=== PATIENT | female | born 1990 | race Caucasian/White ===

== ENCOUNTER 2016-08-26 10:34 | Emergency (ER) | payer BC, OTHER ==
[2016-08-26] MEDS ORDERED: NS 0.9% 1000 ML* 1,000 ML IV ONE (11:16)
[2016-08-26 12:08] LABS: Hematocrit 42 % (35-47); Mean Corpuscular HGB Conc 34 g/dl (31-36); Mean Corpuscular Hemoglobin 29 pg (27-31); Mean Corpuscular Volume 86 fL (80-97); Mean Platelet Volume 7 um3 (7.4-10.4); Red Blood Count 4.87 10^6/ul (4.0-5.4); Red Cell Distribution Width 15 % (10.5-15); White Blood Count 8.6 10^3/ul (3.5-10.8)
[2016-08-26 12:25] LABS: ALT 28 U/L (7-52); AST 20 U/L (13-39); Albumin 3.9 g/dL (3.2-5.2); Alkaline Phosphatase 74 U/L (34-104); Anion Gap 11 mmol/L (2-11); BUN/Creatinine Ratio 15.2 (8-20); Blood Urea Nitrogen 10 mg/dL (6-24); C Reactive Protein 18.51 mg/L (< 5.00); CO2 Carbon Dioxide 24 mmol/L (22-32); Calcium 9.4 mg/dL (8.6-10.3); Chloride 94 mmol/L (101-111); EGFR African American 141.5 (>60); Globulin 4.1 g/dL (2-4); Glucose 417 mg/dL (70-100); Lipase 27 U/L (11.0-82.0); Potassium 3.5 mmol/L (3.5-5.0); Sodium 129 mmol/L (133-145)
[2016-08-26 12:36] LABS: Urine Bacteria Absent (Absent); Urine Bilirubin Negative (Negative); Urine Glucose 3+(>=500 mg/dL) (Negative); Urine Nitrite Negative (Negative)
[2016-08-26 12:48] LABS: TSH (Thyroid Stimulating Horm) 4.57 mcIU/mL (0.34-5.60)
[2016-08-26] MEDS ORDERED: cefTRIAXone(*) 1 GM in NS 0.9% 50 ML* 50 ML IVPB ONE (13:04)
[2016-08-26] MEDS ORDERED: DOXYcycline CAP(*) 100 MG PO ONE (13:04)
[2016-08-26] MEDS ORDERED: NS 0.9% 1000 ML* 2,000 ML IV ONE (13:04)
[2016-08-26] MEDS ORDERED: Iodixanol* (CONTRAST) 320 MG/ML 100 ML SDV IV ONE (14:34)
--- NOTE | 2016-08-26 15:05 | RAD ---
INDICATION: Lower abdominal pain left greater than right. COMPARISON: Comparison is made with a prior CT of the abdomen and pelvis from December 16, 2012. TECHNIQUE: A CT scan of the abdomen and pelvis was performed with intravenous and oral contrast following intravenous injection of 122 ml of is a PICC 320 nonionic contrast. Contiguous axial sections were obtained from the lung bases through the symphysis pubis. Images were reconstructed in the coronal and sagittal planes. FINDINGS: The lung bases are clear. No pleural effusion is present. The liver is moderately enlarged and decreased in attenuation consistent with fatty infiltration without significant focal abnormality. This appears similar to the prior study. No calcified gallstones are seen. The spleen appears to be within normal limits. The pancreas appears to be within normal limits. The kidneys and adrenal glands are normal in size. No hydronephrosis is seen. No significant focal renal abnormality is seen. The aorta is normal in caliber and demonstrates homogeneous contrast opacification. No significant enlarged retroperitoneal lymph nodes are seen. The stomach, small and large bowel appear nondistended. The patient is status post appendectomy. There is mild descending and sigmoid diverticulosis without evidence for diverticulitis. The uterus is retroverted and normal in size. No free intraperitoneal air or fluid is seen. No significant focal osseous abnormality is seen. IMPRESSION: 1. NO EVIDENCE FOR ACUTE FINDING OR CAUSE FOR THE PATIENT'S ABDOMINAL PAIN IS SEEN. 2. HEPATOMEGALY AND HEPATIC STEATOSIS.
--- NOTE | 2016-08-26 15:44 | ED ---
I, Adriel,Max, scribed for Wicho García MD on 08/26/16 at 1230 . GI/ HPI - HPI Summary HPI Summary: This 26 y/o female presents to ED for "black" vaginal discharge since 3 days ago. Positive suprapubic discomfort. Pt reports that her menstrual cycle is irregular with LMP in March 2016. Two home tests TEST CASE DEVELOPER were negative. Pt denies any dysuria, but complaints of suprapubic abd pain, chronic constipation, and recurrent fever/chills secondary to her "thyroid problem". PMHx does include borderline diet- and exercise- controlled DM and appendectomy. 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 - History of Current Complaint Chief Complaint: EDVaginalBleeding Time Seen by Provider: 08/26/16 11:09 Stated Complaint: ABD PAIN Hx Obtained From: Patient, Medical Records Onset/Duration: Started Days Ago - 3 days ago, Still Present Timing: Constant Severity: Mild Current Severity: Mild Vaginal Bleeding Description: Dark Red - "black" Pain Intensity: 6 Location of Pain: Suprapubic Pain Characteristics: Dull Associated Signs and Symptoms: Positive: Fever - subjective, chronic secondary to "thyroid problem", Chills - subjective, chronic secondary to "thyroid problem ". Negative: Dysuria Aggravating Factor(s): Nothing Alleviating Factor(s): Nothing - Allergy/Home Medications Allergies/Adverse Reactions: Allergies Allergy/AdvReac Type Severity Reaction Status Date / Time PEACHES Allergy Rash And Uncoded 08/26/16 10:44 Itching PMH/Surg Hx/FS Hx/Imm Hx Endocrine/Hematology History: Reports: Hx Thyroid Disease Comment Only: Hx Diabetes - borderline controlled by diet and exercise Respiratory History: Reports: Hx Asthma - Surgical History Surgery Procedure, Year, and Place: Appendectomy, Tonsils and adnoids removed, herniated belly button repair as an infant Infectious Disease History: No Infectious Disease History: Denies: Traveled Outside the [place] in Last 30 Days - Family History Known Family History: Positive: Unknown - Pt is adopted - Social History Substance Use Type: Reports: None Review of Systems Positive: Fever - subjective, chronic, Chills - subjective, chronic Positive: Abdominal Pain - suprapubic pain, Other - chronic constipation Negative: Anxious, Depressed All Other Systems Reviewed And Are Negative: Yes Physical Exam Triage Information Reviewed: Yes Vital Signs On Initial Exam: Initial Vitals Temp Pulse Resp BP Pulse Ox 97.5 F 109 15 153/104 100 08/26/16 10:36 08/26/16 10:36 08/26/16 10:36 08/26/16 10:36 08/26/16 10:36 Vital Signs Reviewed: Yes Appearance: Positive: Well-Appearing, No Pain Distress, Obese Skin: Positive: Warm, Dry Eyes: Positive: EOMI, ROMULO Respiratory/Lung Sounds: Positive: Clear to Auscultation, Breath Sounds Present Cardiovascular: Positive: RRR, Pulses are Symmetrical in both Upper and Lower Extremities Abdomen Description: Positive: Other: - suprapubic tenderness. Negative: CVA Tenderness (R), CVA Tenderness (L) Bowel Sounds: Positive: Present Musculoskeletal: Positive: Strength/ROM Intact Neurological: Positive: Sensory/Motor Intact, Alert, Oriented to Person Place, Time Psychiatric: Positive: Affect/Mood Appropriate AVPU Assessment: Alert Diagnostics - Vital Signs Vital Signs Temp Pulse Resp BP Pulse Ox 08/26/16 10:36 97.5 F 109 15 153/104 100 - Laboratory Lab Results: Lab Results 08/26/16 08/26/16 08/26/16 Range/Units 11:55 11:55 11:55 WBC 8.6 (3.5-10.8) 10^3/ul RBC 4.87 (4.0-5.4) 10^6/ul Hgb 14.0 (12.0-16.0) g/dl Hct 42 (35-47) % MCV 86 (80-97) fL MCH 29 (27-31) pg MCHC 34 (31-36) g/dl RDW 15 (10.5-15) % Plt Count 214 (150-450) 10^3/ul MPV 7 L (7.4-10.4) um3 Neut % (Auto) 52.9 (38-83) % Lymph % (Auto) 40.2 (25-47) % [place] % (Auto) 5.2 (1-9) % Eos % (Auto) 0.9 (0-6) % Baso % (Auto) 0.8 (0-2) % Absolute Neuts (auto) 4.5 (1.5-7.7) 10^3/ul Absolute Lymphs (auto) 3.4 (1.0-4.8) 10^3/ul Absolute Monos (auto) 0.4 (0-0.8) 10^3/ul Absolute Eos (auto) 0.1 (0-0.6) 10^3/ul Absolute Basos (auto) 0.1 (0-0.2) 10^3/ul Absolute Nucleated RBC 0 10^3/ul Nucleated RBC % 0 INR (Anticoag Therapy) 0.94 (0.89-1.11) APTT 29.2 (26.0-36.3) seconds Sodium (133-145) mmol/L Potassium (3.5-5.0) mmol/L Chloride (101-111) mmol/L Carbon Dioxide (22-32) mmol/L Anion Gap (2-11) mmol/L BUN (6-24) mg/dL Creatinine (0.51-0.95) mg/dL Est GFR ( Amer) (>60) Est GFR (Non-Af Amer) (>60) BUN/Creatinine Ratio (8-20) Glucose (70-100) mg/dL Lactic Acid (0.5-2.0) mmol/L Calcium (8.6-10.3) mg/dL Total Bilirubin (0.2-1.0) mg/dL AST (13-39) U/L ALT (7-52) U/L Alkaline Phosphatase (34-104) U/L C-Reactive Protein (< 5.00) mg/L Total Protein (6.4-8.9) g/dL Albumin (3.2-5.2) g/dL Globulin (2-4) g/dL Albumin/Globulin Ratio (1-3) Lipase (11.0-82.0) U/L TSH (0.34-5.60) mcIU/mL Beta HCG, Quant mIU/mL Urine Color Yellow Urine Appearance Clear Urine pH 6.0 (5-9) Ur Specific Emblem 1.029 (1.010-1.030) Urine Protein Negative (Negative) Urine Ketones Negative (Negative) Urine Blood 3+ H (Negative) Urine Nitrate Negative (Negative) Urine Bilirubin Negative (Negative) Urine Urobilinogen Negative (Negative) Ur Leukocyte Esterase Negative (Negative) Urine WBC (Auto) Absent (Absent) Urine RBC (Auto) Trace(0-2/hpf) (Absent) Ur Squamous Epith Cells Present H (Absent) Urine Bacteria Absent (Absent) Urine Glucose 3+(>=500 mg/dl) H (Negative) 08/26/16 08/26/16 Range/Units 11:55 11:55 WBC (3.5-10.8) 10^3/ul RBC (4.0-5.4) 10^6/ul Hgb (12.0-16.0) g/dl Hct (35-47) % MCV (80-97) fL MCH (27-31) pg MCHC (31-36) g/dl RDW (10.5-15) % Plt Count (150-450) 10^3/ul MPV (7.4-10.4) um3 Neut % (Auto) (38-83) % Lymph % (Auto) (25-47) % [place] % (Auto) (1-9) % Eos % (Auto) (0-6) % Baso % (Auto) (0-2) % Absolute Neuts (auto) (1.5-7.7) 10^3/ul Absolute Lymphs (auto) (1.0-4.8) 10^3/ul Absolute Monos (auto) (0-0.8) 10^3/ul Absolute Eos (auto) (0-0.6) 10^3/ul Absolute Basos (auto) (0-0.2) 10^3/ul Absolute Nucleated RBC 10^3/ul Nucleated RBC % INR (Anticoag Therapy) (0.89-1.11) APTT (26.0-36.3) seconds Sodium 129 L (133-145) mmol/L Potassium 3.5 (3.5-5.0) mmol/L Chloride 94 L (101-111) mmol/L Carbon Dioxide 24 (22-32) mmol/L Anion Gap 11 (2-11) mmol/L BUN 10 (6-24) mg/dL Creatinine 0.66 (0.51-0.95) mg/dL Est GFR ( Amer) 141.5 (>60) Est GFR (Non-Af Amer) 110.0 (>60) BUN/Creatinine Ratio 15.2 (8-20) Glucose 417 H (70-100) mg/dL Lactic Acid 3.2 H* (0.5-2.0) mmol/L Calcium 9.4 (8.6-10.3) mg/dL Total Bilirubin 0.40 (0.2-1.0) mg/dL AST 20 (13-39) U/L ALT 28 (7-52) U/L Alkaline Phosphatase 74 (34-104) U/L C-Reactive Protein 18.51 H (< 5.00) mg/L Total Protein 8.0 (6.4-8.9) g/dL Albumin 3.9 (3.2-5.2) g/dL Globulin 4.1 H (2-4) g/dL Albumin/Globulin Ratio 1.0 (1-3) Lipase 27 (11.0-82.0) U/L TSH 4.57 (0.34-5.60) mcIU/mL Beta HCG, Quant < 0.60 mIU/mL Urine Color Urine Appearance Urine pH (5-9) Ur Specific Emblem (1.010-1.030) Urine Protein (Negative) Urine Ketones (Negative) Urine Blood (Negative) Urine Nitrate (Negative) Urine Bilirubin (Negative) Urine Urobilinogen (Negative) Ur Leukocyte Esterase (Negative) Urine WBC (Auto) (Absent) Urine RBC (Auto) (Absent) Ur Squamous Epith Cells (Absent) Urine Bacteria (Absent) Urine Glucose (Negative) Result Diagrams: 08/26/16 11:55 08/26/16 11:55 Lab Statement: Any lab studies that have been ordered have been reviewed, and results considered in the medical decision making process. - CT Ab/P CT Interpretation: No Acute Changes - 1. NO EVIDENCE FOR ACUTE FINDING OR CAUSE FOR THE PATIENT'S ABDOMINAL PAIN IS SEEN. 2. HEPATOMEGALY AND HEPATIC STEATOSIS. CT Interpretation Completed By: Radiologist - Additional Comments Diagnostic Additional Comments: US Pelvis -- See EMR for official reading. Imaging pending at this time. GIGU Course/Dx - Course Assessment/Plan: DISCUSSED RESULTS WITH PATIENT. WILL TREAT FOR PID WHILE PELVIC CX PENDING WITH DOXY 100MG PO BID X 14 DAYS AND WITH METRO GEL FOR POSSIBLE BV. ENCOURAGED F/U WITH PMD TO MANAGE DIABETES. DISCHARGE HOME STABLE. - Diagnoses Provider Diagnoses: Pelvic pain, Diabetes Discharge - Discharge Plan Condition: Stable Disposition: HOME Discharge Disposition Comment: Signed out at shift change. US Pelvis study pending. Prescriptions: DOXYcycline CAP(*) [DOXYcycline 100MG CAP(*)] 100 mg PO BID #27 cap metroNIDAZOLE VAGINAL 0.75%* 1 applic VAGINAL BEDTIME #5 tube Patient Education Materials: Pelvic Pain (ED), Managing Diabetes During Sick Days (ED), Diabetes Mellitus Type 2 in Adults (ED) Referrals: Elma Castro PA [Primary Care Provider] - [facility] [Outside] Additional Instructions: FOLLOW UP WITH YOUR DOCTOR FOR BOTH YOUR PELVIC PAIN AND FOR DIABETES TREATMENT. RETURN TO THE EMERGENCY DEPARTMENT FOR ANY WORSENING OF YOUR CONDITION OR QUESTIONS OR CONCERNS. The documentation as recorded by the Adriel gerber Soohyun accurately reflects the service I personally performed and the decisions made by me, Wicho García MD.
--- NOTE | 2016-08-26 15:47 | RAD ---
Indication: Pelvic pain. COMPARISON: Comparison is made with a prior CT of the abdomen and pelvis of the same date. TECHNIQUE: Multiple real-time transvaginal images of the pelvis were obtained. FINDINGS: The uterus is normal in size, shape and echogenicity. The uterus measured 8.3 x 5.3 x 4.1 cm. The endometrial echo measured 1.0 cm in thickness. The right ovary measured 2.9 x 2.3 x 5.1 cm. The left ovary measured 2.3 x 2.3 x 3.6 cm. There is vascular flow within both ovaries. No free intraperitoneal fluid is seen. IMPRESSION: RETROVERTED UTERUS, OTHERWISE UNREMARKABLE STUDY.
[2016-08-26 15:53] VITALS: BP 112/95
== END 2016-08-26 15:54 | disposition home or self-care (01) ==
LOC: ED 10:34
DX: R10.2 Pelvic and perineal pain (principal); E11.8 Type 2 diabetes mellitus with unspecified complications; R50.9 Fever, unspecified; R68.83 Chills (without fever); R10.9 Unspecified abdominal pain; K59.00 Constipation, unspecified
CPT/HCPCS: 36415; 74177; 76830; 76856; 80053; 81003; 81015; 83605; 83690; 84443; 84702; 85025; 85610; 85730; 86140; 87480; 87491; 87510; 87591; 87661; 99283; A9270-GY; J0696; Q9967

== ENCOUNTER 2018-11-08 14:08 | Emergency (ER) | payer OTHER ==
[2018-11-08 15:04] VITALS: BP 161/96
--- NOTE | 2018-11-08 16:08 | UC ---
Skin Complaint HPI - HPI Summary HPI Summary: Patient had 2 papules on her right abdomen and left abdomen over the past week. She states today they are more red and scabbed but no active drainage. She denies any fever or chills. She denies any history of MRSA - History of Current Complaint Chief Complaint: UCSkin Time Seen by Provider: 11/08/18 16:04 Stated Complaint: SKIN CONCERN Hx Obtained From: Patient Hx Last Menstrual Period: "I DON'T REMEMBER.. I NEVER HAVE REGULAR PERIODS" ?: No Onset/Duration: Gradual Onset Skin Exposure Onset/Duration: Days Ago Timing: Constant Onset Severity: Mild Current Severity: Moderate Pain Intensity: 7 Location: Other - Abdomen Character: Swelling, Redness, Raised, Painful Aggravating Factor(s): Touch Alleviating Factor(s): Nothing - Allergy/Home Medications Allergies/Adverse Reactions: Allergies Allergy/AdvReac Type Severity Reaction Status Date / Time naproxen Allergy Rash Verified 11/08/18 15:01 PMH/Surg Hx/FS Hx/Imm Hx Previously Healthy: Yes - Surgical History Surgical History: Yes Surgery Procedure, Year, and Place: Appendectomy, Tonsils and adnoids removed, herniated belly button repair as an infant - Family History Known Family History: Positive: Unknown - Pt is adopted - Social History Alcohol Use: None Substance Use Type: None Smoking Status (MU): Former Smoker Review of Systems All Other Systems Reviewed And Are Negative: Yes Skin: Positive: Other - 2 scabbed areas one to the right of the navel in one to the left surrounded by approximately 2.0 cm of erythema and tender on palpation no active drainage. Is Patient Immunocompromised?: No Physical Exam Triage Information Reviewed: Yes Appearance: Well-Appearing, No Pain Distress, Well-Nourished Vital Signs: Initial Vital Signs Temp 97.5 F 11/08/18 15:01 Pulse 105 11/08/18 15:01 Resp 18 11/08/18 15:01 BP 161/96 11/08/18 15:01 Pulse Ox 100 11/08/18 15:01 Vital Signs Reviewed: Yes Musculoskeletal Exam: Normal Neurological Exam: Normal Psychological Exam: Normal Skin: Positive: Other - 2 scabbed areas one to the right of the navel in one to the left surrounded by approximately 2.0 cm of erythema and tender on palpation no active drainage. Course/Dx - Course Course Of Treatment: Patient is comfortable here. These are 2 areas of cellulitis which may be developing into an abscess. On an antibiotic and warm moist compresses 4-6 times a day. She is to follow- up with her primary care provider in 3 or 4 days if no improvement and go to the emergency room if she has any worsening symptoms, fever or chills, vomiting or any further concerns. The patient is agreeable to this plan of action. - Diagnoses Provider Diagnosis: Cellulitis of abdominal wall Discharge - Sign-Out/Discharge Documenting (check all that apply): Patient Departure All imaging exams completed and their final reports reviewed: No Studies - Discharge Plan Condition: Fair Disposition: HOME Prescriptions: Cephalexin CAP* [Keflex 500 CAP*] 500 mg PO TID 10 Days #30 cap Patient Education Materials: Cellulitis (DC) Referrals: No Primary Care Phys,NOPCP [Primary Care Provider] - [facility] [Outside] Additional Instructions: Warm moist compresses to the area 4-6 times a day for 20 minutes each time. Definite [facility] at [facility] if the area worsens or starts draining pus. You are to go to the emergency room if you have any fever, chills , vomiting and unable keep the medication down or worsening symptoms. - Billing Disposition and Condition Condition: FAIR Disposition: Home - Attestation Statements Provider Attestation: Per institutional requirements, I have reviewed the chart, however, I was not consulted specifically or made aware of this patient by the midlevel provider. I did not personally evaluate, interact with , or disposition this patient.
== END 2018-11-08 16:12 | disposition home or self-care (01) ==
LOC: UCCORT 14:08
DX: L03.311 Cellulitis of abdominal wall (principal); Z88.8 Allergy status to other drugs, medicaments and biological substances
CPT/HCPCS: 99212; G0463

== ENCOUNTER 2019-02-27 19:31 | Emergency (ER) | payer OTHER ==
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
[2019-02-28 03:37] LABS: ABS Eosinophils 0.1 10^3/ul (0-0.6); ABS Monocytes 0.6 10^3/ul (0-0.8); ABS Neutrophils 6.8 10^3/ul (1.5-7.7); Eosinophil % 0.6 %; Hematocrit 42 % (35-47); Hemoglobin 14.1 g/dL (12.0-16.0); Lymphocyte % 34.6 %; Mean Corpuscular HGB Conc 34 g/dL (31-36); Mean Corpuscular Hemoglobin 30 pg (27-31); Mean Corpuscular Volume 88 fL (80-97); Mean Platelet Volume 7.3 fL (7.4-10.4); Nucleated Red Blood Cells % 0.2; Platelet Count 258 10^3/uL (150-450); Red Blood Count 4.79 10^6 /uL (3.70-4.87); Red Cell Distribution Width 15 % (10-15); White Blood Count 11.4 10^3/uL (3.5-10.8)
[2019-02-28] MEDS ORDERED: Acyclovir* 200 MG CAP PO ONE (03:44)
[2019-02-28] MEDS ORDERED: Azithromycin TAB* 250 MG PO ONE (03:45)
[2019-02-28] MEDS ORDERED: cefTRIAXone VIAL(*) 250 MG VIAL IM ONE (03:45)
[2019-02-28] MEDS ORDERED: DOXYcycline CAP(*) 100 MG PO ONE (03:45)
[2019-02-28 04:01] LABS: Albumin 4.4 g/dL (3.2-5.2); Albumin/Globulin Ratio 1.1 (1-3); BUN/Creatinine Ratio 12.3 (8-20); Calcium 9.1 mg/dL (8.6-10.3); EGFR African American 155.1 (>60); EGFR Non-African American 128.2 (>60); Potassium 3.3 mmol/L (3.5-5.0); Total Bilirubin 0.6 mg/dL (0.2-1.0); Total Protein 8.4 g/dL (6.4-8.9)
[2019-02-28] MEDS ORDERED: Lidocaine 1% MPF ** 5 ML VIAL ONE (04:27)
[2019-02-28] MEDS ORDERED: Acyclovir SUSP(*) ORALSYR 40 MG/ML (200 MG/5 ML) PO ONE (05:00)
[2019-02-28 05:20] VITALS: BP 143/94
== END 2019-02-28 05:19 | disposition home or self-care (01) ==
LOC: ED 19:31
DX: A60.04 Herpesviral vulvovaginitis (principal); K59.00 Constipation, unspecified; R73.03 Prediabetes; Z79.84 Long term (current) use of oral hypoglycemic drugs; I10 Essential (primary) hypertension; Z88.6 Allergy status to analgesic agent; Z91.018 Allergy to other foods; Z87.891 Personal history of nicotine dependence
CPT/HCPCS: 36415; 80053; 83605; 85025; 96372; 99283; A9270-GY; J0696

== ENCOUNTER 2019-04-02 17:56 | Emergency (ER) | payer OTHER ==
[2019-04-02] MEDS ORDERED: Ondansetron INJ* 2 MG/ML VIAL IV ONE (21:41)
[2019-04-02] MEDS ORDERED: NS 0.9% 1000 ML** 1,000 ML IV ONE (21:41)
[2019-04-02 21:44] LABS: ABS Basophils 0.1 10^3/ul (0-0.2); ABS Lymphocytes 3.9 10^3/ul (1.0-4.8); ABS Monocytes 0.4 10^3/ul (0-0.8); ABS Neutrophils 7.2 10^3/ul (1.5-7.7); Eosinophil % 0.3 %; Hematocrit 42 % (35-47); Hemoglobin 14.3 g/dL (12.0-16.0); Lymphocyte % 33.5 %; Mean Corpuscular HGB Conc 34 g/dL (31-36); Mean Corpuscular Hemoglobin 30 pg (27-31); Mean Corpuscular Volume 87 fL (80-97); Mean Platelet Volume 7.1 fL (7.4-10.4); Platelet Count 294 10^3/uL (150-450); Red Blood Count 4.85 10^6 /uL (3.70-4.87); Red Cell Distribution Width 14 % (10-15); White Blood Count 11.6 10^3/uL (3.5-10.8)
--- NOTE | 2019-04-02 21:44 | ED ---
GI/ HPI - HPI Summary HPI Summary: This patient is a 28 year old F presenting to [facility] with a chief complaint of severe vaginal bleeding since one week ago. Patient reports red rash, burning urination, abdominal pain, vaginal pain, diaphoresis, near syncope every time she moves, constipation, vomiting with any intake of food. Patient denies diarrhea. Per triage, the patient rates the pain 6/10 in severity. Pt is not on control. Pt has PMHx of polycystic ovary syndrome, and her last period was months ago. - History of Current Complaint Chief Complaint: EDGeneral Time Seen by Provider: 04/02/19 21:21 Stated Complaint: HEAVY BLEEDING CRAMPS PER PT Hx Obtained From: Patient Hx Last Menstrual Period: "I DON'T REMEMBER.. I NEVER HAVE REGULAR PERIODS" Onset/Duration: Started Days Ago Timing: Constant Severity: Moderate Current Severity: Moderate Vaginal Bleeding Description: Bright Red Pain Intensity: 6 Location of Pain: Diffuse Additional Location for Females: Other - Vaginal pain Associated Signs and Symptoms: Positive: Vomiting, Diaphoresis, Dysuria, Abdominal Pain, Other: - red rash near vagina, vaginal pain, near syncope, constipation,. Negative: Diarrhea Additional Signs & Symptoms: Positive: Vaginal Bleeding, Menses Irregular Aggravating Factor(s): Movement Alleviating Factor(s): Nothing - Allergy/Home Medications Allergies/Adverse Reactions: Allergies Allergy/AdvReac Type Severity Reaction Status Date / Time naproxen Allergy Rash Verified 11/08/18 15:01 peaches Allergy Rash Uncoded 02/27/19 19:41 PMH/Surg Hx/FS Hx/Imm Hx Endocrine/Hematology History: Reports: Hx Diabetes - borderline controlled by diet and exercise, Hx Thyroid Disease Cardiovascular History: Reports: Hx Hypertension Respiratory History: Reports: Hx Asthma History: Denies: Hx Renal Disease - Surgical History Surgery Procedure, Year, and Place: Appendectomy, Tonsils and adnoids removed, herniated belly button repair as an infant Infectious Disease History: No Infectious Disease History: Denies: Traveled Outside the [place] in Last 30 Days - Family History Known Family History: Positive: Unknown - Pt is adopted - Social History Alcohol Use: None Hx Substance Use: No Substance Use Type: Reports: None Hx Tobacco Use: Yes Smoking Status (MU): Former Smoker - Additional Comments History Additional Comments: Home Medications Medication Instructions Recorded Confirmed Type Acyclovir* [Zovirax 200 MG CAP*] 200 mg PO 5ID #35 cap 02/28/19 Rx Atorvastatin* [Lipitor 10 MG*] 10 mg PO DAILY 02/28/19 02/28/19 History DOXYcycline CAP(*) [DOXYcycline 100 mg PO BID #20 cap 02/28/19 Rx 100MG CAP(*)] Polyethylene Glycol 3350 BTL* 17 gm PO DAILY 02/28/19 02/28/19 History [Miralax] metFORMIN* [Glucophage 1000 MG TAB 1,000 mg PO BID 02/28/19 02/28/19 History *] Review of Systems Positive: Skin Diaphoresis Positive: Abdominal Pain, Vomiting, Nausea, Other - Constipation. Negative: Diarrhea Positive: burning, pain Positive: Rash Neurological: Other - near syncope All Other Systems Reviewed And Are Negative: Yes Physical Exam - Summary Physical Exam Summary: General: Obese Female. No acute distress. HEENT: Normocephalic, Atraumatic. Eyes: Conjuctiva normal, PERRL. Ears: TMs within normal limits. Nares: (-) discharge, (-) erythema. Oropharynx: Clear, mucous membranes moist, (-) exudates. Neck: Soft, FROM, (-) lymphadenopathy, (-) thyromegaly, (-) JVD. Cardiovascular: Normal sinus rhythm, (-) murmur. Lungs: Clear to auscultation bilaterally (-) wheezes, (-) rales, (-) rhonchi. Abdomen: Soft, non-tender, non-distended, (-) organomegaly, normal bowel sounds. Back: (-) CVA tenderness : external erythema on her vaginal labia and inner thighs bilaterally with satellite lesions, moderately tender to palpation, no discharge Extremities: No edema. Skin: Warm, dry, (-) rash. Neuro: Alert and oriented x3, no focal deficits. Psychiatric: Mood normal, affect normal. Triage Information Reviewed: Yes Vital Signs On Initial Exam: Initial Vitals Temp Pulse Resp BP Pulse Ox 98.2 F 102 16 139/91 98 04/02/19 18:02 04/02/19 18:02 04/02/19 18:02 04/02/19 18:02 04/02/19 18:02 Vital Signs Reviewed: Yes Procedures - Sedation Patient Received Moderate/Deep Sedation with Procedure: No Diagnostics - Vital Signs Vital Signs Temp Pulse Resp BP Pulse Ox 04/02/19 18:02 98.2 F 102 16 139/91 98 - Laboratory Result Diagrams: 04/02/19 21:30 04/02/19 21:30 Lab Statement: Any lab studies that have been ordered have been reviewed, and results considered in the medical decision making process. Re-Evaluation - Re-Evaluation First Eval Re-Evaluation Time: 00:08 Comment: I have discussed results with the patient. Discussed symptoms that warrant immediate return to ED GIGU Course/Dx - Course Course Of Treatment: This patient is a 28 year old F presenting to [facility] with a chief complaint of severe vaginal bleeding since one week ago. Patient reports red rash, burning urination, abdominal pain, vaginal pain, diaphoresis, near syncope every time she moves, constipation, vomiting with any intake of food. Patient denies diarrhea. Per triage, the patient rates the pain 6/10 in severity. Pt is not on control. Pt has PMHx of polycystic ovary syndrome , and her last period was months ago. Physical exam findings are nml. Except she is an obese female, with external erythema on her vaginal labia and inner thighs bilaterally with satellite lesions, moderately tender to palpation, no discharge. Blood work obtained. WBC is 11.6, MPV is 7.1, Anion Gap is 12, and Glucose is 225. UA obtained. In the ED course the patient was given Zofran, Nystatin OINT and fluids. Patient will be discharged. The patient is agreeable with this plan. - Diagnoses Provider Diagnoses: Candidiasis of genitalia in female, Hyperglycemia Discharge ED - Sign-Out/Discharge Documenting (check all that apply): Patient Departure - Discharge - Discharge Plan Condition: Stable Disposition: HOME Prescriptions: Nystatin OINT* 1 applic TOPICAL BID #1 tube Patient Education Materials: Yeast Infection (ED) Referrals: [facility] [Outside] - 3 Days Additional Instructions: Please follow up with your primary care physician within three days. Given Nystatin ointment. Please return to ED for any new or worsening symptoms. - Billing Disposition and Condition Condition: STABLE Disposition: Home - Attestation Statements Document Initiated by Scribe: Yes Documenting Scribe: Spohia Stephens Provider For Whom Scribe is Documenting (Include Credential): Dr. Naz Valdez MD Scribe Attestation: Sophia Jeansh, scribed for Dr. Naz Valdez MD on 04/03/19 at 0153. Scribe Documentation Reviewed: Yes Provider Attestation: The documentation as recorded by the deniseibe, Sophia Stephens accurately reflects the service I personally performed and the decisions made by me, Dr. Naz Valdez MD Status of Scribe Document: Viewed
[2019-04-02 21:49] LABS: INR 1.04 (0.82-1.09)
[2019-04-02 21:55] LABS: ALT 19 U/L (7-52); AST 14 U/L (13-39); Albumin 4.3 g/dL (3.2-5.2); Albumin/Globulin Ratio 1.1 (1-3); Alkaline Phosphatase 75 U/L (34-104); Anion Gap 12 mmol/L (2-11); BUN/Creatinine Ratio 16.4 (8-20); Blood Urea Nitrogen 9 mg/dL (6-24); CO2 Carbon Dioxide 23 mmol/L (22-32); Calcium 9.4 mg/dL (8.6-10.3); Chloride 102 mmol/L (101-111); EGFR African American 161.7 (>60); EGFR Non-African American 133.6 (>60); Globulin 3.9 g/dL (2-4); Glucose 225 mg/dL (70-100); Potassium 3.7 mmol/L (3.5-5.0); Sodium 137 mmol/L (135-145); Total Protein 8.2 g/dL (6.4-8.9)
[2019-04-02 22:01] LABS: HCG Pregnancy < 0.60 mIU/mL
[2019-04-02] MEDS ORDERED: Ondansetron ODT TAB* 4 MG PO ONE (23:02)
[2019-04-02] MEDS ORDERED: Nystatin OINT* 15 GM TOPICAL SCH (23:30)
[2019-04-03 01:46] VITALS: BP 140/99
== END 2019-04-03 00:25 | disposition home or self-care (01) ==
LOC: ED 17:56
DX: B37.3 Candidiasis of vulva and vagina (principal); R73.9 Hyperglycemia, unspecified; R11.10 Vomiting, unspecified; R30.0 Dysuria; R10.9 Unspecified abdominal pain; R21 Rash and other nonspecific skin eruption; R55 Syncope and collapse; R73.03 Prediabetes; I10 Essential (primary) hypertension; Z87.891 Personal history of nicotine dependence; R11.2 Nausea with vomiting, unspecified; K59.00 Constipation, unspecified; E66.9 Obesity, unspecified
CPT/HCPCS: 36415; 80053; 84702; 85025; 85610; 99282; A9270-GY

== ENCOUNTER 2019-07-13 19:37 | Emergency (ER) | payer OTHER ==
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
[2019-07-13] MEDS ORDERED: Ibuprofen TAB* 400 MG PO ONE (22:07)
[2019-07-13] MEDS ORDERED: cefTRIAXone VIAL(*) 250 MG VIAL IM ONE (23:20)
[2019-07-13] MEDS ORDERED: Levonorgestrel 1.5 MG TAB PO ONE (23:20)
[2019-07-13] MEDS ORDERED: Azithromycin TAB* 250 MG PO ONE (23:20)
[2019-07-13] MEDS ORDERED: Raltegravir* 400 MG TAB PO ONE (23:20)
[2019-07-13] MEDS ORDERED: metroNIDAZOLE TAB* 250 MG PO ONE (23:20)
[2019-07-14] MEDS ORDERED: O ndansetron ODT 4MG 5TAB PRPK 4 MG PAK PO ONE (00:03)
[2019-07-14] MEDS ORDERED: Ondansetron ODT TAB* 4 MG SL PRN (00:04)
[2019-07-14] MEDS ORDERED: Tenofovir/Emtricitab 200/300 * TAB PO ONE (00:05)
[2019-07-14] MEDS ORDERED: Tetan/Diph/Pertus SYR(Tdap)* 0.5 ML SYR(BOOSTRIX) use SYR contains LATEX IM ONE (00:36)
[2019-07-14 00:37] LABS: ABS Basophils 0.1 10^3/ul (0-0.2); ABS Eosinophils 0.1 10^3/ul (0-0.6); ABS Monocytes 0.6 10^3/ul (0-0.8); ABS Neutrophils 6.6 10^3/ul (1.5-7.7); Eosinophil % 0.5 %; Hematocrit 43 % (35-47); Hemoglobin 14.6 g/dL (12.0-16.0); Lymphocyte % 29.2 %; Mean Corpuscular HGB Conc 34 g/dL (31-36); Mean Corpuscular Hemoglobin 29 pg (27-31); Mean Corpuscular Volume 86 fL (80-97); Mean Platelet Volume 6.9 fL (7.4-10.4); Platelet Count 299 10^3/uL (150-450); Red Blood Count 5.01 10^6 /uL (3.70-4.87); Red Cell Distribution Width 15 % (10-15); White Blood Count 10.3 10^3/uL (3.5-10.8)
[2019-07-14] MEDS ORDERED: Lidocaine 1% INJ* 10 MG/ML 30 ML SDV ONE (00:49)
[2019-07-14 00:55] LABS: ALT 16 U/L (7-52); AST 14 U/L (13-39); Albumin 4.3 g/dL (3.2-5.2); Alkaline Phosphatase 72 U/L (34-104); Anion Gap 11 mmol/L (2-11); BUN/Creatinine Ratio 11.3 (8-20); Blood Urea Nitrogen 7 mg/dL (6-24); CO2 Carbon Dioxide 22 mmol/L (22-32); Calcium 9.1 mg/dL (8.6-10.3); Chloride 101 mmol/L (101-111); EGFR African American 139.7 (>60); EGFR Non-African American 115.5 (>60); Globulin 4.1 g/dL (2-4); Glucose 285 mg/dL (70-100); Potassium 3.7 mmol/L (3.5-5.0); Sodium 134 mmol/L (135-145); Total Protein 8.4 g/dL (6.4-8.9)
[2019-07-14 01:01] LABS: HCG Pregnancy < 0.60 mIU/mL
[2019-07-14 01:19] LABS: Urine Appearance Cloudy; Urine Bilirubin Negative (Negative); Urine Blood 3+ (Negative); Urine Color Yellow; Urine Glucose 3+(>=500 mg/dL) (Negative); Urine Ketones Negative (Negative); Urine Nitrite Negative (Negative); Urine Protein Negative (Negative); Urine Specific Gravity 1.013 (1.010-1.030); Urine Urobilinogen Negative (Negative)
[2019-07-14 01:23] LABS: Urine Bacteria Absent (Absent); Urine Red Blood Cell 3+(>10/hpf) (Absent); Urine Squamous Epithelial Cell Present (Absent); Urine White Blood Cell 3+(>20/hpf) (Absent)
[2019-07-14 01:29] LABS: HIV 4th Generation Nonreactive (Nonreactive)
[2019-07-14 01:46] VITALS: BP 123/97
[2019-07-14 02:02] LABS: Hepatitis B Surface Antigen Nonreactive (Nonreactive)
[2019-07-14 02:19] LABS: Hepatitis C Antibody Negative (Negative)
[2019-07-14 14:06] LABS: Chlamydia trachomatis NAA Negative (Negative); Neisseria gonorrhoeae (GC) NAA Negative (Negative)
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
== END 2019-07-14 01:45 | disposition home or self-care (01) ==
LOC: ED 19:37
DX: T74.21XA Adult sexual abuse, confirmed, initial encounter (principal); Z23 Encounter for immunization; Y92.59 Other trade areas as the place of occurrence of the external cause; E07.9 Disorder of thyroid, unspecified; E11.9 Type 2 diabetes mellitus without complications; I10 Essential (primary) hypertension; J45.909 Unspecified asthma, uncomplicated; Z90.89 Acquired absence of other organs; Z87.891 Personal history of nicotine dependence; Z79.84 Long term (current) use of oral hypoglycemic drugs; Z79.899 Other long term (current) drug therapy
CPT/HCPCS: 36415; 80053; 81003; 81015; 83605; 84702; 85025; 86803; 87077; 87086; 87340; 87389; 87480; 87491; 87510; 87591; 87660; 90471; 90715; 96372; 99285; A9270-GY; J0696